=== PATIENT | male | born 2000 | race Hispanic/Latino ===

== ENCOUNTER 2019-01-06 13:32 | Outpatient (CLI) | payer OTHER ==
--- NOTE | 2019-01-06 15:41 | ULT ---
TESTICULAR ULTRASOUND: Date: 01/06/19 INDICATION: Presents for palpable fullness right testicle. FINDINGS: Both testicles have a normal sonographic appearance. Color Doppler with spectral analysis demonstrate s normal blood flow to both testicles. Slight increased vascular flow is seen in the right testicle. There is a small right epididymal cyst which may correspond to the area of palpable concern. This sma ll cyst measures 4-5 mm. No evidence of hydrocele. IMPRESSION: 1. Small right epididymal cyst. 2. No acute abnormality identified. POS: [facility]
== END 2019-01-06 13:33 | disposition home or self-care (01) ==
LOC: BICULT 13:32
PROVIDERS: ATTEND Family Medicine
DX: N50.89 Other specified disorders of the male genital organs (principal); N50.3 Cyst of epididymis
CPT/HCPCS: 76870; 93976